=== PATIENT | female | born 1985 | race Caucasian/White ===

== ENCOUNTER 2021-01-24 19:36 | Emergency (ER) | payer SELFPAY | END 2021-01-24 21:26 | disposition left against medical advice (07) | LOC: ANHED 21:25 | PROVIDERS: PCP Internal Medicine Infectious Disease | DX: Z53.21 Procedure and treatment not carried out due to patient leaving prior to being seen by health care provider (principal) | CPT/HCPCS: 99199 ==

== ENCOUNTER 2022-11-21 19:09 | Emergency (ER) | payer SELFPAY ==
[2022-11-21 19:17] VITALS: BP 141/79; PULSE 108; RESP 16; TEMP 36.6; O2SAT 100
[2022-11-21 19:46] LABS: Basophils Percent Auto 0.3 % (0.2-1.2); Eosinophils Absolute Auto 0.1 K/mm3 (0-0.3); Hematocrit 39.8 % (37.0-47.0); Hemoglobin 13.1 g/dL (12.0-15.0); Immature Granulocyte Absolute 0.04 K/mm3 (0.00-0.031); Immature Granulocyte Percent A 0.3 % (0-0.5); Lymphocytes Absolute Auto 2.83 K/mm3 (0.9-3.2); Lymphocytes Percent Auto 20.9 % (18.3-44.2); Mean Corpuscular HGB Conc 32.9 g/dl (32-36); Mean Corpuscular Volume 91.3 fl (80-100); Mean Platelet Volume 10.5 fl (7.4-10.4); Monocytes Absolute Auto 0.8 K/mm3 (0.1-0.6); Monocytes Percent Auto 6.1 % (2.6-8.5); Neutrophils Absolute Auto 9.7 K/mm3 (1.3-6.7); Neutrophils Percent Auto 71.4 % (45.5-73.1); Platelet Count Result 292 k/mm3 (150-375); Red Blood Count 4.36 M/mm3 (4.2-5.4); Red Cell Distribution Width 15.1 % (11.5-14.5); White Blood Count 13.5 K/mm3 (4.5-10.0)
[2022-11-21 19:52] LABS: Appearance Urine Clear (Clear); Bacteria Urine None Seen /hpf; Bilirubin Urine Negative (Negative); Blood Urine Negative (Negative); Color Urine Yellow (Yellow); Glucose Urine UA Negative (Negative); Ketones Urine Negative (Negative); Leukocyte Esterase Ur Trace LEU/UL (Negative); Nitrate Urine Negative (Negative); Non Pathogenic Casts 0-2; Protein Urine Negative (Negative); RBC Urine 0-2 /hpf (0-2); Specific Grav Ur 1.008 (1.001-1.035); Squamous Epithelial Cell Urine None seen /hpf (Few); Urobilinogen Urine 0.2 mg/dL (<2.0); WBC Urine 0-5 /hpf
[2022-11-21 19:56] LABS: Alanine Aminotransferase 19 U/L (6-35); Albumin Level 4.2 g/dL (3.5-5.1); Alkaline Phosphatase 47 U/L (38-126); Anion Gap 8 mmol/L (8-16); Aspartate Amino Transferase 21 U/L (14-36); Bilirubin,Total 0.4 mg/dL (0.2-1.3); Blood Urea Nitrogen 13 mg/dL (7-17); Calcium 8.6 mg/dL (8.4-10.2); Carbon Dioxide 25 mmol/L (22-30); Chloride 104 mmol/L (98-107); Estimated CRCL calculation 95 ml/min; Estimated Glomerular Filt Rate > 60; Glucose 109 mg/dL (65-110); Potassium 3.7 mmol/L (3.4-5.0); Sodium 137 mmol/L (137-145)
[2022-11-21 19:58] LABS: Add Urine Microscopic? YES
--- NOTE | 2022-11-21 22:15 | ED.FEMALEGU ---
HPI - Female Genitourinary General Chief complaint: Vaginal Bleeding Stated complaint: vaginal bleed, twice as long and twice as much Time Seen by Provider: 11/21/22 21:37 History of Present Illness HPI Narrative: Patient reports that usually her periods are about 4 days long but this time it was 7 days and heavier than usual, with some cramping, and she was also concerned about STDs because 3 weeks ago she was having multiple partners without using protection. She reports the bleeding has mostly slowed down Related Data Allergies Allergy/AdvReac Type Severity Reaction Status Date / Time No Known Allergies Allergy Mild Verified 11/21/22 19:21 Review of Systems Review of Systems: CONST: No fever. HEENT: No sore throat C/V: No chest pain RESP: No cough GI: Crampy pelvic pain : Vaginal bleeding M/S: No joint pain. SKIN: No rash. NEURO: [No headache or focal numbness or weakness] PSYCH: [No depression] Exam Narrative: EXAMINATION OF ORGAN SYSTEMS/BODY AREAS: Constitutional: Vital signs per nursing GENERAL:[No acute distress, non-toxic appearing.] HEAD: Normal with no signs of head trauma. EYES: EOMI, conjunctiva normal ENT: Hearing grossly intact LUNGS: Nonlabored breathing. HEART: [Regular rate and rhythm] ABD: [Soft], [nontender to palpation] : No adnexal or CMT, scant blood in canal EXT: Normal range of motion SKIN: [No rashes or lesions.] NEURO: [Alert and oriented x 3. No gross focal sensory or strength deficits.] PSYCH: Normal affect Course Vital Signs Vital signs: Vital Signs Temperature 97.9 F 11/21/22 19:17 Pulse Rate 108 H 11/21/22 19:17 Respiratory Rate 16 11/21/22 19:17 Blood Pressure 141/79 H 11/21/22 19:17 Pulse Oximetry 100 11/21/22 19:17 Oxygen Delivery Room Air 11/21/22 19:17 Temperature 97.9 F 11/21/22 19:17 Pulse Rate 72 11/21/22 22:48 Respiratory Rate 18 11/21/22 22:48 Blood Pressure 129/65 11/21/22 22:48 Pulse Oximetry 96 11/21/22 22:48 Oxygen Delivery Room Air 11/21/22 19:17 MDM - Female Genitourinary MDM Narrative Medical decision making narrative: 37-year-old female presenting with vaginal bleeding that is heavier than usual, vital signs within acceptable limits, labs notable for white count slightly elevated, on exam she has no cervical motion tenderness or adnexal tenderness so I have low concern for serious pelvic infection, no UTI, test negative, patient would like to be treated empirically for STDs at this time so treatment is started and she is given return precautions and follow-up to MANAGER OF COMPENSATION provided Lab Data 11/21/22 19:38 11/21/22 19:38 Labs: Lab Results 11/21/22 11/21/22 Range/Units 19:38 22:52 WBC 13.5 H (4.5-10.0) K/mm3 RBC 4.36 (4.2-5.4) M/mm3 Hgb 13.1 (12.0-15.0) g/dL Hct 39.8 (37.0-47.0) % MCV 91.3 (80-100) fl MCH 30.0 (26-34) pg MCHC 32.9 (32-36) g/dl RDW 15.1 H (11.5-14.5) % Plt Count 292 (150-375) k/mm3 MPV 10.5 H (7.4-10.4) fl Immature Gran % (Auto) 0.3 (0-0.5) % Neut % (Auto) 71.4 (45.5-73.1) % Lymph % (Auto) 20.9 (18.3-44.2) % [place] % (Auto) 6.1 (2.6-8.5) % Eos % (Auto) 1.0 (0-4.4) % Baso % (Auto) 0.3 (0.2-1.2) % Lymph # (Auto) 2.83 (0.9-3.2) K/mm3 [place] # (Auto) 0.8 H (0.1-0.6) K/mm3 Eos # (Auto) 0.1 (0-0.3) K/mm3 Baso # (Auto) 0.0 (0.0-0.1) K/mm3 Abs Immat Gran (auto) 0.04 H (0.00-0.031) K/mm3 Absolute Neuts (auto) 9.7 H (1.3-6.7) K/mm3 Absolute Nucleated RBC 0.0 (0.0-0.012) K/mm3 Nucleated RBC % 0.0 (0.0-0.2) % Sodium 137 (137-145) mmol/L Potassium 3.7 (3.4-5.0) mmol/L Chloride 104 (98-107) mmol/L Carbon Dioxide 25 (22-30) mmol/L Anion Gap 8 (8-16) mmol/L BUN 13 (7-17) mg/dL Creatinine 0.80 (0.7-1.0) mg/dL Estim Creat Clear Calc 95 ml/min Estimated GFR > 60 (59 - ) Glucose 109 (65-110) mg/dL Calcium 8.6 (8.4-10
[2022-11-21] MEDS: metroNIDAZOLE 250 MG TABLET 500 MG PO (22:38)
[2022-11-21] MEDS: DOXYCYCLINE HYCLATE 100 MG TABLET PO (22:38)
[2022-11-21] MEDS: WATER, STERILE FOR INJECTION 10 ML VIAL XX (22:39)
[2022-11-21] MEDS: cefTRIAXone 1 GM VIAL 0.5 GM IM (22:39)
[2022-11-21 22:48] VITALS: BP 129/65; PULSE 72; RESP 18; O2SAT 96
== END 2022-11-21 22:57 | disposition home or self-care (01) ==
PROVIDERS: Physician Assistant; Emergency Provider Emergency Medicine; PCP Family Medicine Sports Medicine
DX: N92.0 Excessive and frequent menstruation with regular cycle (principal)
CPT/HCPCS: 36415; 80053; 81001; 81025; 85025; 87070; 87491; 87591; 87808; 96372; 99284; A9270; J0696

== ENCOUNTER 2022-11-26 15:45 | Emergency (ER) | payer MEDICAID, SELFPAY ==
[2022-11-26] VITALS (7 sets, daily range): BP systolic 125–145; BP diastolic 72–87; PULSE 53–83; RESP 19–20; TEMP 36.3; O2SAT 100
--- NOTE | ~2022-11-26 | XR_ITS ---
EXAMINATION: XR chest 2V DATE: 11/26/2022 16:37 INDICATION: Weakness. Dizziness. TECHNIQUE: Frontal and lateral views of the chest were obtained. COMPARISON: None. FINDINGS: There is no pneumonia, pleural effusion, or pneumothorax. The heart size is normal. IMPRESSION: 1. No acute cardiopulmonary disease. Reviewed, dictated and finalized at location E.
--- NOTE | 2022-11-26 15:46 | ECG_ITS ---
Measurements Intervals [place] Rate: 70 P: 62 IN: 153 QRS: 14 QRSD: 89 T: 49 QT: 376 QTc: 408 Interpretive Statements SINUS RHYTHM WITH MARKED SINUS ARRHYTHMIA BORDERLINE ECG NO PREVIOUS ECG AVAILABLE FOR COMPARISON Electronically Signed On 11-27-2022 15:31:04 CDT by Renato Mary M.D.
[2022-11-26 16:28] LABS: Basophils Percent Auto 0.2 % (0.2-1.2); Eosinophils Percent Auto 0.3 % (0-4.4); Hemoglobin 13.7 g/dL (12.0-15.0); Immature Granulocyte Absolute 0.04 K/mm3 (0.00-0.031); Immature Granulocyte Percent A 0.4 % (0-0.5); Lymphocytes Absolute Auto 2.35 K/mm3 (0.9-3.2); Lymphocytes Percent Auto 21.5 % (18.3-44.2); Mean Corpuscular HGB Conc 33.4 g/dl (32-36); Mean Corpuscular Volume 89.7 fl (80-100); Mean Platelet Volume 10.4 fl (7.4-10.4); Monocytes Absolute Auto 0.8 K/mm3 (0.1-0.6); Neutrophils Absolute Auto 7.7 K/mm3 (1.3-6.7); Neutrophils Percent Auto 70.6 % (45.5-73.1); Platelet Count Result 323 k/mm3 (150-375); Red Blood Count 4.57 M/mm3 (4.2-5.4); Red Cell Distribution Width 14.8 % (11.5-14.5); White Blood Count 10.9 K/mm3 (4.5-10.0)
[2022-11-26 16:58] LABS: Appearance Urine Clear (Clear); Bacteria Urine None Seen /hpf; Bilirubin Urine Negative (Negative); Blood Urine 1+ (Negative); Color Urine Yellow (Yellow); Glucose Urine UA Negative (Negative); Ketones Urine 3+ mg/dL (Negative); Leukocyte Esterase Ur Negative LEU/UL (Negative); Nitrate Urine Negative (Negative); Non Pathogenic Casts 0-2; Protein Urine Negative (Negative); Specific Grav Ur 1.012 (1.001-1.035); Squamous Epithelial Cell Urine None seen /hpf (Few); Urobilinogen Urine 0.2 mg/dL (<2.0); WBC Urine 0-5 /hpf; pH Urine 6.5 (5.0-9.0)
[2022-11-26 17:00] LABS: Add Urine Microscopic? YES
[2022-11-26 17:01] LABS: Alanine Aminotransferase 29 U/L (6-35); Albumin Level 4.2 g/dL (3.5-5.1); Alkaline Phosphatase 48 U/L (38-126); Anion Gap 9 mmol/L (8-16); Aspartate Amino Transferase 28 U/L (14-36); Bilirubin,Total 0.4 mg/dL (0.2-1.3); Blood Urea Nitrogen 9 mg/dL (7-17); Calcium 8.8 mg/dL (8.4-10.2); Carbon Dioxide 24 mmol/L (22-30); Chloride 104 mmol/L (98-107); Estimated CRCL calculation 105 ml/min; Estimated Glomerular Filt Rate > 60; Glucose 94 mg/dL (65-110); Potassium 3.5 mmol/L (3.4-5.0); Sodium 137 mmol/L (137-145)
--- NOTE | 2022-11-26 17:07 | ED.DIZZY ---
HPI - Dizziness General Chief Complaint: Dizziness Stated Complaint: dizziness thinks from vaginal bleeding Time Seen by Provider: 11/26/22 15:59 History of Present Illness HPI Narrative: Patient is a 37-year-old female with a history of anxiety presenting with lightheadedness. Patient states that she has had vaginal bleeding for the last 2 weeks which is normal for her. She was seen last week hand told that things look okay so she was able to go home. States that she stopped taking the minipill at this time. States that she continues to have intermittent vaginal bleeding. States that she suffers from panic attacks that she has had several over the last few days. States that she has had some left-sided chest pain that has gone into her arm so she became concerned for a heart attack. States that she also had some lightheadedness earlier this morning. States that she has not been eating or drinking much due to just not feeling generally well. Denies fevers or chills, cough, shortness of breath, abdominal pain, vomiting, diarrhea, dysuria, leg swelling. Related Data Allergies Allergy/AdvReac Type Severity Reaction Status Date / Time No Known Allergies Allergy Mild Verified 11/26/22 16:11 Review of Systems Review of Systems: All systems reviewed & are unremarkable except as noted in HPI and below Exam Narrative: GENERAL: Well-appearing, well-nourished, and in no acute distress. Pleasant and cooperative HEAD: Normocephalic, atraumatic. EYES: PERRLA and EOMI. ENT: Nares clear, no rhinorrhea or epistaxis. Mucous membranes moist. NECK: Supple. CHEST: Clear to auscultation. No respiratory distress. HEART: Regular rate and rhythm. Normal peripheral pulses. ABDOMEN: Soft, nontender, nondistended EXTREMITIES: Normal range of motion. No edema. SKIN: Warm, dry, no rash. NEURO: No focal deficits. Alert and oriented x3. PSYCH: Normal mood and affect. Course Vital Signs Vital signs: Vital Signs Temperature 97.4 F L 11/26/22 15:46 Pulse Rate 70 11/26/22 15:46 Respiratory Rate 20 11/26/22 15:46 Blood Pressure 131/84 11/26/22 15:46 Pulse Oximetry 100 11/26/22 15:46 Oxygen Delivery Room Air 11/26/22 15:46 Temperature 97.4 F L 11/26/22 15:46 Pulse Rate 83 11/26/22 20:01 Respiratory Rate 19 11/26/22 19:16 Blood Pressure 127/84 11/26/22 20:01 Pulse Oximetry 100 11/26/22 19:16 Oxygen Delivery Room Air 11/26/22 15:46 MDM - Dizziness MDM Narrative Medical decision making narrative: Patient is a 37-year-old female presenting with lightheadedness earlier today. Vitals are within normal limits. Patient is well-appearing and in no acute distress. Exam remarkable for the above. EKG per my interpretation shows normal sinus rhythm with sinus arrhythmia, normal intervals, no ST elevations or depressions. Blood work is unremarkable. Patient reports feeling improved following IV fluids. Discussed the reassuring work-up. Advise she follow-up with primary care as well as psychiatry regarding her anxiety and panic attacks. Appropriate return precautions given. Patient voiced understanding and is agreeable with plan. Discharged in stable condition. Differential Diagnosis Differential diagnosis: Likely orthostatic hypotension and other (Vasovagal syncope, dehydration, anxiety, panic attack) Medical Records Attestation: I reviewed the patient's medical records. Lab Data Attestation: I reviewed the patient's lab results. 11/26/22 16:23 11/26/22 16:44 Labs: Lab Results 11/26/22 11/26/22 Range/Units 16:23 16:44 WBC 10.9 H (4.5-10.0) K/mm3 RBC 4.57 (4.2-5.4) M/mm3 Hgb 13.7 (12.0-15.0) g/dL Hct 41.0 (37.0-47.0) % MCV 89.7 (80-100) fl MCH 30.0 (26-34) pg MCHC 33.4 (32-36) g/dl RDW 14.8 H (11.5-14.5) % Plt Count 323 (150-375) k/mm3 MPV 10.4 (7.4-10.4) fl Immature Gran % (Auto) 0.4 (0-0.5) % Neut % (Auto) 70.6 (45
[2022-11-26] MEDS: LACTATED RINGERS 1,000 ML 999 ML IV CONT (18:06)
== END 2022-11-26 20:10 | disposition home or self-care (01) ==
PROVIDERS: Preventive Medicine Aerospace Medicine; Emergency Provider Emergency Medicine; PCP Family Medicine Sports Medicine
DX: R42 Dizziness and giddiness (principal); F41.9 Anxiety disorder, unspecified; R94.31 Abnormal electrocardiogram [ECG] [EKG]
CPT/HCPCS: 36415; 71046; 80053; 81001; 85025; 93005; 96360; 99283; J7120

== ENCOUNTER 2022-12-18 10:38 | Emergency (ER) | payer SELFPAY ==
[2022-12-18 10:45] VITALS: BP 160/90; PULSE 96; RESP 18; TEMP 37; O2SAT 100
[2022-12-18 11:35] LABS: Basophils Percent Auto 0.3 % (0.2-1.2); Eosinophils Absolute Auto 0.1 K/mm3 (0-0.3); Hematocrit 39.8 % (37.0-47.0); Hemoglobin 13.1 g/dL (12.0-15.0); Immature Granulocyte Absolute 0.01 K/mm3 (0.00-0.031); Immature Granulocyte Percent A 0.1 % (0-0.5); Lymphocytes Absolute Auto 1.84 K/mm3 (0.9-3.2); Lymphocytes Percent Auto 25.9 % (18.3-44.2); Mean Corpuscular HGB Conc 32.9 g/dl (32-36); Mean Corpuscular Hemoglobin 30.3 pg (26-34); Mean Corpuscular Volume 92.1 fl (80-100); Mean Platelet Volume 10.7 fl (7.4-10.4); Monocytes Absolute Auto 0.5 K/mm3 (0.1-0.6); Neutrophils Absolute Auto 4.7 K/mm3 (1.3-6.7); Neutrophils Percent Auto 65.7 % (45.5-73.1); Platelet Count Result 242 k/mm3 (150-375); Red Blood Count 4.32 M/mm3 (4.2-5.4); Red Cell Distribution Width 14.6 % (11.5-14.5); White Blood Count 7.1 K/mm3 (4.5-10.0)
[2022-12-18 11:45] LABS: Alanine Aminotransferase 19 U/L (6-35); Alkaline Phosphatase 52 U/L (38-126); Anion Gap 7 mmol/L (8-16); Aspartate Amino Transferase 23 U/L (14-36); Bilirubin,Total 0.6 mg/dL (0.2-1.3); Blood Urea Nitrogen 11 mg/dL (7-17); Calcium 8.5 mg/dL (8.4-10.2); Carbon Dioxide 26 mmol/L (22-30); Chloride 104 mmol/L (98-107); Estimated CRCL calculation 105 ml/min; Estimated Glomerular Filt Rate > 60; Glucose 107 mg/dL (65-110); Sodium 137 mmol/L (137-145)
--- NOTE | 2022-12-18 12:12 | ED.GENADULT ---
HPI - General Adult General Chief complaint: Vaginal Bleeding Stated complaint: vag bleed Time Seen by Provider: 12/18/22 10:51 History of Present Illness HPI narrative: Patient is a 37-year-old female who presents ER with vaginal bleeding. Began 2 days ago. LMP was 11/13/2022 and she had a period for 2 weeks. She reports she has been using a menstrual cup and has had 200 mL of blood. She is also passed some larger clots that concern her. She is supposed to follow-up with her visual supervisor tomorrow if everything is okay. No dizziness or loss of consciousness. No exertional shortness of breath. Related Data Allergies Allergy/AdvReac Type Severity Reaction Status Date / Time No Known Allergies Allergy Mild Verified 12/18/22 10:48 Review of Systems Constitutional: Constitutional: Denies chills, Denies fever(s) and Denies weakness Gastrointestinal: Gastrointestinal: Denies abdominal pain, Denies nausea and Denies vomiting Genitourinary: Genitourinary: Reports abnormal vaginal bleeding, Denies nocturia, Denies dysuria, Denies pelvic pain and Denies vaginal discharge PMFSH Past Medical History Medical History (Updated 12/18/22 @ 17:52 by Sanjay Ivy MD) Healthy female adult Surgical History Surgical History (Updated 12/18/22 @ 17:52 by Sanjay Ivy MD) S/P lumpectomy, right breast Exam Narrative: GENERAL: Well-appearing, well-nourished, and in no acute distress. HEAD: Normocephalic, atraumatic. ENT: Mucous membranes moist. CHEST: Clear to auscultation. No respiratory distress. HEART: Regular rate and rhythm. Normal peripheral pulses. ABDOMEN: Soft, nontender, nondistended. Pelvic: Normal external genitalia. Scant blood within the vagina with a closed cervix is nonfriable without hemorrhage. EXTREMITIES: Normal range of motion. No edema. NEURO: Alert and oriented x3. PSYCH: Normal mood and affect. Course Course Emergency Course: No significant blood loss. No hypotension. Patient felt appropriate for follow-up with her visual supervisor. Recommend continuing her anti-inflammatories. Vital Signs Vital signs: Vital Signs Temperature 98.6 F 12/18/22 10:45 Pulse Rate 96 12/18/22 10:45 Respiratory Rate 18 12/18/22 10:45 Blood Pressure 160/90 H 12/18/22 10:45 Pulse Oximetry 100 12/18/22 10:45 Temperature 98.6 F 12/18/22 10:45 Pulse Rate 70 12/18/22 12:26 Respiratory Rate 18 12/18/22 12:26 Blood Pressure 127/88 12/18/22 12:26 Pulse Oximetry 100 12/18/22 12:26 Medical Decision Making Vital Signs Vital Signs: Vital Signs Temperature 98.6 F 12/18/22 10:45 Pulse Rate 96 12/18/22 10:45 Respiratory Rate 18 12/18/22 10:45 Blood Pressure 160/90 H 12/18/22 10:45 Pulse Oximetry 100 12/18/22 10:45 Temperature 98.6 F 12/18/22 10:45 Pulse Rate 70 12/18/22 12:26 Respiratory Rate 18 12/18/22 12:26 Blood Pressure 127/88 12/18/22 12:26 Pulse Oximetry 100 12/18/22 12:26 Lab Data 12/18/22 11:24 12/18/22 11:24 Labs: Lab Results 12/18/22 Range/Units 11:24 WBC 7.1 (4.5-10.0) K/mm3 RBC 4.32 (4.2-5.4) M/mm3 Hgb 13.1 (12.0-15.0) g/dL Hct 39.8 (37.0-47.0) % MCV 92.1 (80-100) fl MCH 30.3 (26-34) pg MCHC 32.9 (32-36) g/dl RDW 14.6 H (11.5-14.5) % Plt Count 242 (150-375) k/mm3 MPV 10.7 H (7.4-10.4) fl Immature Gran % (Auto) 0.1 (0-0.5) % Neut % (Auto) 65.7 (45.5-73.1) % Lymph % (Auto) 25.9 (18.3-44.2) % [place] % (Auto) 7.0 (2.6-8.5) % Eos % (Auto) 1.0 (0-4.4) % Baso % (Auto) 0.3 (0.2-1.2) % Lymph # (Auto) 1.84 (0.9-3.2) K/mm3 [place] # (Auto) 0.5 (0.1-0.6) K/mm3 Eos # (Auto) 0.1 (0-0.3) K/mm3 Baso # (Auto) 0.0 (0.0-0.1) K/mm3 Abs Immat Gran (auto) 0.01 (0.00-0.031) K/mm3 Absolute Neuts (auto) 4.7 (1.3-6.7) K/mm3 Absolute Nucleated RBC 0.0 (0.0-0.012) K/mm3 Nucleated RBC % 0.0 (0.0-0.2) % Sodium 137 (137-145) mmol/L
[2022-12-18 12:26] VITALS: BP 127/88; PULSE 70; RESP 18; O2SAT 100
== END 2022-12-18 12:22 | disposition home or self-care (01) ==
PROVIDERS: Emergency Provider Emergency Medicine
DX: N93.8 Other specified abnormal uterine and vaginal bleeding (principal)
CPT/HCPCS: 36415; 80053; 85025; 99284